=== PATIENT | male | born 1995 ===

== ENCOUNTER → 2016-10-17 | Outpatient (REF) | payer OTHER ==
[2016-10-17 13:35] LABS: % NORMAL FORMS 11 % (>=4); IMMOTILITY 43 %; NON PROGRESSIVE MOTILITY (c) 11 %; PROGRESSIVE MOTILITY (a) 46 % (>=32); SPERM ABNORMAL FORMS WBC'S NOTED; SPERM# 167.5 M/Ejac (>=39); TOTAL MOTILITY 57 % (>=40); TOTAL PROGRESSIVE SPERM 77.7 M/Ejac.
[2016-10-17 13:36] LABS: TOTAL FUNCTIONAL 19.2 M/Ejac.
== END ==
LOC: M LAB REF 13:30
PROVIDERS: ATTEND Obstetrics & Gynecology
DX: N46.9 Male infertility, unspecified (principal)